=== PATIENT | female | born 1955 | race Caucasian/White ===

== ENCOUNTER 2025-04-16 16:14 | Inpatient (IN) | payer MEDICARE, MEDICAID ==
[~2025-04-16] VITALS: Ht 152.4 cm; Wt 64.6 kg
[2025-04-16 16:17] VITALS: O2SAT 100
[2025-04-16] MEDS: SODIUM CHLORIDE 0.9% 1,000 ML IV ONE (17:01)
[2025-04-16 17:42] LABS: BASOPHILS % 0.6 % (0.0-2.0); EOSINOPHILS % 1.0 % (0.0-5.0); HEMATOCRIT. 37.0 % (36.0-48.0); HEMOGLOBIN. 12.5 g/dL (12.0-16.0); LYMPHOCYTES % 32.8 % (20.0-50.0); MEAN PLATELET VOLUME 7.3 fl (7.4-10.4); MONOCYTES % 10.6 % (2.0-8.0); NEUTROPHILS % 55.0 % (40.0-76.0); PLATELET 250 x1000/uL (130-400); RED BLOOD CELL COUNT 3.84 mill/uL (4.2-5.4); RED CELL DISTRIBUTION WIDTH 12.6 % (11.6-14.6)
[2025-04-16 17:58] LABS: CREATININE 0.8 mg/dL (0.6-1.0)
[2025-04-16 17:59] LABS: PROTEIN TOTAL 7.0 g/dL (6.0-8.3); TROPONIN I HIGH SENSITIVITY 4 ng/L (3.0-34); UREA NITROGEN BLOOD 9 mg/dL (9-23)
[2025-04-16 18:00] LABS: ASPARTATE AMINOTRANSFERASE 23 IU/L (<34)
[2025-04-16 18:01] LABS: BILIRUBIN DIRECT 0.2 mg/dL (<=3.0); BILIRUBIN TOTAL 0.8 mg/dL (0.1-1.0)
[2025-04-16] MEDS ORDERED: MAGNESIUM/ALUMINUM HYDROXIDE/SIMETHICONE 30ML UDC PO PRN (19:30)
[2025-04-16] MEDS ORDERED: MORPHINE SULFATE 2 MG/ML INJ (NOT FOR IM USE) IV PRN (19:30)
[2025-04-16] MEDS ORDERED: HYDROCODONE/ACETAMINOPHEN 5/325MG TABLET PO PRN ×2 (19:30)
[2025-04-16] MEDS ORDERED: ONDANSETRON HCL 4MG/2ML INJ IV PRN (19:30)
[2025-04-16] MEDS ORDERED: ZOLPIDEM TARTRATE 5MG TABLET PO PRN (19:30)
[2025-04-16] MEDS ORDERED: DEXTROSE 50% WATER 50ML SYRINGE IV PRN (19:30)
[2025-04-16] MEDS: INSULIN LISPRO 100 UNITS/ML SUBCUT SCH (21:00)
[2025-04-16] MEDS: BLOOD SUGAR DIAGNOSTIC STRIP TEST SCH (21:28)
[2025-04-16] MEDS: SODIUM CHLORIDE 0.9% 1,000 ML IV SCH (21:32)
[2025-04-16 22:42] LABS: TROPONIN I HIGH SENSITIVITY 5 ng/L (3.0-34)
[2025-04-16 23:45] VITALS: BP 164/81; PULSE 82; RESP 18; TEMP 36.696
[2025-04-16] MEDS ORDERED: TRAMADOL 50MG TABLET PO PRN (23:45)
[2025-04-16] MEDS ORDERED: NALOXONE HCL 0.4MG/ML VIAL IV PRN (23:45)
[2025-04-16] MEDS: CLONIDINE 0.1MG TABLET PO PRN (23:59)
[2025-04-17] MEDS ORDERED: GABA-1180 MT (00:10)
[2025-04-17] MEDS ORDERED: METO-396 MT (00:10)
[2025-04-17] MEDS ORDERED: METF-416 MT (00:10)
[2025-04-17] MEDS: ACETAMINOPHEN 325MG TABLET PO PRN (02:47)
[2025-04-17 06:31] LABS: BASOPHILS % 0.4 % (0.0-2.0); EOSINOPHILS % 1.1 % (0.0-5.0); HEMATOCRIT. 36.4 % (36.0-48.0); HEMOGLOBIN. 12.2 g/dL (12.0-16.0); LYMPHOCYTES % 35.6 % (20.0-50.0); MEAN PLATELET VOLUME 7.5 fl (7.4-10.4); MONOCYTES % 12.7 % (2.0-8.0); NEUTROPHILS % 50.2 % (40.0-76.0); PLATELET 228 x1000/uL (130-400); RED BLOOD CELL COUNT 3.83 mill/uL (4.2-5.4); RED CELL DISTRIBUTION WIDTH 12.5 % (11.6-14.6)
[2025-04-17 06:34] LABS: CREATININE 0.6 mg/dL (0.6-1.0); TRIGLYCERIDE 321 mg/dL (0-150); UREA NITROGEN BLOOD 10 mg/dL (9-23)
[2025-04-17 06:35] LABS: LDL CHOLESTEROL 169 mg/dL (5-100)
[2025-04-17 06:36] LABS: TROPONIN I HIGH SENSITIVITY 8 ng/L (3.0-34)
[2025-04-17 08:00] VITALS: BP 128/71; PULSE 60; RESP 16; TEMP 36.3; O2SAT 98
[2025-04-17] MEDS: ENOXAPARIN 40MG/0.4ML SYR SUBCUT SCH (08:23)
[2025-04-17] MEDS: GABAPENTIN 300MG CAPSULE PO SCH (08:23)
[2025-04-17] MEDS: METOPROLOL SUCCINATE 25MG ER TABLET PO SCH (08:24)
[2025-04-17] MEDS: LEVOTHYROXINE SODIUM 25MCG TABLET PO SCH (08:25)
[2025-04-17] MEDS: PANTOPRAZOLE SODIUM 40 MG/VIAL IV SCH (08:34)
[2025-04-17 12:00] VITALS: BP 134/75; PULSE 68; RESP 16; TEMP 36.5; O2SAT 96
[2025-04-17] MEDS: ASPIRIN 81MG TABLET PO SCH (12:49)
[2025-04-17] MEDS: OXCARBAZEPINE 300MG TABLET PO SCH (12:49)
[2025-04-17 14:12] LABS: CLARITY URINE CLEAR (CLEAR); COLOR URINE YELLOW (YELLOW); GLUCOSE URINE NEGATIVE (NEGATIVE); KETONES URINE NEGATIVE (NEGATIVE); LEUKOCYTE ESTERASE URINE NEGATIVE (NEGATIVE); NITRITE URINE NEGATIVE (NEGATIVE); OCCULT BLOOD URINE NEGATIVE (NEGATIVE); PH URINE 6.5 (4.5-8.0); PROTEIN URINE NEGATIVE (NEGATIVE); SPECIFIC GRAVITY URINE 1.007 (1.005-1.030); UROBILINOGEN URINE 0.2 E.U./dL (0.2-1.0)
[2025-04-17 14:22] LABS: *AMPHETAMINES SCREEN URINE NEGATIVE (NEGATIVE); *BARBITURATES SCREEN URINE NEGATIVE (NEGATIVE); *BENZODIAZEPINES SCREEN URINE NEGATIVE (NEGATIVE); *COCAINE SCREEN URINE NEGATIVE (NEGATIVE); CANNABINOID URINE SCREEN NEGATIVE (NEGATIVE); ECSTASY MDMA SCREEN URINE NEGATIVE (NEGATIVE); METHADONE URINE SCREEN NEGATIVE (NEGATIVE); OPIATES URINE SCREEN NEGATIVE (NEGATIVE); PHENCYCLIDINE URINE SCREEN NEGATIVE (NEGATIVE)
[2025-04-17 16:00] VITALS: BP 129/78; PULSE 65; RESP 18; TEMP 36.7; O2SAT 98
[2025-04-17 20:00] VITALS: BP 117/66; PULSE 51; RESP 18; TEMP 37; O2SAT 100
[2025-04-17] MEDS: ATORVASTATIN CALCIUM 20MG TABLET PO SCH (20:10)
[2025-04-18] VITALS: BP 118/80; PULSE 54; RESP 16; TEMP 36.6; O2SAT 98
[2025-04-18 04:00] VITALS: BP 136/74; PULSE 53; RESP 16; TEMP 36.7; O2SAT 99
[2025-04-18 06:33] LABS: BASOPHILS % 0.4 % (0.0-2.0); EOSINOPHILS % 1.2 % (0.0-5.0); HEMATOCRIT. 37.4 % (36.0-48.0); HEMOGLOBIN. 12.7 g/dL (12.0-16.0); LYMPHOCYTES % 32.0 % (20.0-50.0); MEAN PLATELET VOLUME 7.4 fl (7.4-10.4); MONOCYTES % 10.0 % (2.0-8.0); NEUTROPHILS % 56.4 % (40.0-76.0); PLATELET 236 x1000/uL (130-400); RED BLOOD CELL COUNT 3.98 mill/uL (4.2-5.4); RED CELL DISTRIBUTION WIDTH 12.4 % (11.6-14.6)
[2025-04-18 06:57] LABS: CREATININE 0.8 mg/dL (0.6-1.0)
[2025-04-18 06:58] LABS: UREA NITROGEN BLOOD 9 mg/dL (9-23)
[2025-04-18 08:00] VITALS: BP 158/83; PULSE 58; RESP 18; TEMP 36.7; O2SAT 99
[2025-04-18] MEDS ORDERED: IODIXANOL 320MG/ML 100 ML BOTTLE IV ONE (09:13)
[2025-04-18] MEDS ORDERED: VERAPAMIL HCL 2.5 MG/1 ML 2ML VIAL IV ONE (09:13)
[2025-04-18] MEDS ORDERED: LIDOCAINE HCL 1% 20ML VIAL ONE (09:13)
[2025-04-18] MEDS ORDERED: MIDAZOLAM HCL 2 MG/2 ML VIAL ONE (09:15)
[2025-04-18] MEDS ORDERED: FENTANYL CITRATE/PF 50MCG/ML 2ML VIAL ONE (09:15)
[2025-04-18] MEDS ORDERED: DIPHENHYDRAMINE 50MG/ML VIAL ONE (09:15)
[2025-04-18] MEDS ORDERED: HEPARIN 1000 UNITS/ML 10ML ONE (09:16)
[2025-04-18] MEDS ORDERED: HYDRALAZINE 20MG/ML VIAL ONE (09:52)
[2025-04-18] MEDS ORDERED: ATROPINE SULFATE 1MG/10ML SYR ONE ×2 (11:22→11:33)
[2025-04-18] MEDS ORDERED: LIDOCAINE HCL 1% 10 MG/ML 10ML VIAL ONE (13:08)
[2025-04-18 14:30] VITALS: BP 148/94; PULSE 81; RESP 18; TEMP 36.8; O2SAT 99
[2025-04-18 16:00] VITALS: BP 132/83; PULSE 77; RESP 22; TEMP 36.6; O2SAT 100
[2025-04-18 20:00] VITALS: BP 116/77; PULSE 59; RESP 16; TEMP 37.1; O2SAT 98
[2025-04-19] VITALS: BP 114/77; PULSE 56; RESP 15; TEMP 36.9; O2SAT 100
[2025-04-19 04:00] VITALS: BP 118/65; PULSE 53; RESP 15; TEMP 36.9; O2SAT 98
[2025-04-19 07:52] LABS: BASOPHILS % 0.3 % (0.0-2.0); EOSINOPHILS % 1.2 % (0.0-5.0); HEMATOCRIT. 36.2 % (36.0-48.0); HEMOGLOBIN. 12.0 g/dL (12.0-16.0); LYMPHOCYTES % 31.4 % (20.0-50.0); MEAN PLATELET VOLUME 7.0 fl (7.4-10.4); MONOCYTES % 11.8 % (2.0-8.0); NEUTROPHILS % 55.3 % (40.0-76.0); PLATELET 217 x1000/uL (130-400); RED BLOOD CELL COUNT 3.81 mill/uL (4.2-5.4); RED CELL DISTRIBUTION WIDTH 12.3 % (11.6-14.6)
[2025-04-19 08:12] LABS: CREATININE 0.7 mg/dL (0.6-1.0); UREA NITROGEN BLOOD 9 mg/dL (9-23)
[2025-04-19] MEDS ORDERED: GADOTERATE MEGLUMINE 5 MMOL/10 ML VIAL IV ONE (09:35)
[2025-04-19] MEDS ORDERED: ASPI-1160 PO (10:30)
[2025-04-19] MEDS ORDERED: LEVO25TA7 PO (10:30)
[2025-04-19] MEDS ORDERED: OXCA300T4 PO (10:30)
[2025-04-19] MEDS ORDERED: ATOR20TA PO (10:30)
[2025-04-19 14:41] VITALS: BP 130/74; PULSE 61; RESP 18; TEMP 98.5
== END 2025-04-19 17:27 | disposition home or self-care (01) | DRG 287 ==
LOC: ER 16:14 → EDBEDREQTM 20:35 → EDBEDREQ 20:35 → ENRESERV 22:21 → 5WST 23:30 → 5EST 04-18 14:12 → 3WST 04-18 14:23
PROVIDERS: ADMIT Internal Medicine; ATTEND Internal Medicine
PROC: 02HV33Z Insertion of Infusion Device into Superior Vena Cava, Percutaneous Approach (ICD-10-PCS; principal; 2025-04-18)
PROC: 4A023N7 Measurement of Cardiac Sampling and Pressure, Left Heart, Percutaneous Approach (ICD-10-PCS; 2025-04-18)
PROC: B548ZZA Ultrasonography of Superior Vena Cava, Guidance (ICD-10-PCS; 2025-04-18)
PROC: B211YZZ Fluoroscopy of Multiple Coronary Arteries using Other Contrast (ICD-10-PCS; 2025-04-18)
PROC: B41FYZZ Fluoroscopy of Right Lower Extremity Arteries using Other Contrast (ICD-10-PCS; 2025-04-18)
PROC: B41CYZZ Fluoroscopy of Pelvic Arteries using Other Contrast (ICD-10-PCS; 2025-04-18)
DX: I25.110 Atherosclerotic heart disease of native coronary artery with unstable angina pectoris (principal); G90.89 Other disorders of autonomic nervous system; I10 Essential (primary) hypertension; E11.9 Type 2 diabetes mellitus without complications; D32.0 Benign neoplasm of cerebral meninges; E78.5 Hyperlipidemia, unspecified; I95.9 Hypotension, unspecified; R00.1 Bradycardia, unspecified; Z88.5 Allergy status to narcotic agent; Z85.841 Personal history of malignant neoplasm of brain
CPT/HCPCS: 36415; 36573; 70553; 71045; 80048; 80061; 80076; 80305; 81003; 82962; 83036; 83735; 83880; 84443; 84484; 85025; 93005; 93306; 93458; 93970; 96360; 97162; 99285; A4606; A4615; A9577; C1725; C1769; C1887; C1893; J0360; J0461; J1200; J1644; J1650; J2003; J2250; J2470; J3010; J3490; J7030; Q9967